=== PATIENT | female | born 2000 | race Caucasian/White ===

== ENCOUNTER 2021-09-02 08:15 | Outpatient (CLI) | payer OTHER ==
[~2021-09-02] VITALS: Ht 160 cm; Wt 43.4 kg
[2021-09-02 08:45] VITALS: BP 103/54; PULSE 60; TEMP 97.4
[2021-09-02 10:50] VITALS: BP 110/71; PULSE 60; TEMP 98
--- NOTE | 2021-09-02 11:06 | NUR ---
Discharge instructions reveiwed with the patient, intstructed to follow up as scheduled with cardiology, instructed to contact physician office with any other questions or concerns, IV removed, VSS, ambulatory and leaving with her spouse
== END 2021-09-02 11:08 | disposition home or self-care (01) ==
LOC: COL.CAR 08:15
DX: R55 Syncope and collapse (principal)

== ENCOUNTER 2022-06-01 21:16 | Emergency (ER) | payer OTHER ==
[~2022-06-01] VITALS: Ht 162.6 cm; Wt 45.5 kg
[2022-06-01 21:22] VITALS: BP 104/57; TEMP 98
[2022-06-01 22:29] LABS: COLLECTION METHOD CLEAN CATCH
[2022-06-01 22:36] LABS: PH 6.5 (5.0-8.5); URINE APPEARANCE Cloudy (CLEAR/HAZY); URINE BACTERIA Rare /hpf (NONE SEEN); URINE BLOOD 2+ (NEGATIVE); URINE COLOR Yellow (YELLOW); URINE GLUCOSE Negative (NEGATIVE); URINE KETONE Negative (NEGATIVE); URINE NITRATE Negative (NEGATIVE); URINE PROTEIN(semi-quant) Negative (NEGATIVE); URINE RBC 0-2 /hpf (0-2); URINE UROBILINOGEN 0.2 E.U/dL (0.2-1.0)
[2022-06-01] MEDS ORDERED: CEPHALEXIN500 M1 PO (22:46)
[2022-06-01 23:04] VITALS: PULSE 92
== END 2022-06-01 23:04 | disposition home or self-care (01) ==
LOC: COL.ER
PROVIDERS: Emergency Medicine
DX: O23.42 Unspecified infection of urinary tract in pregnancy, second trimester (principal); N39.0 Urinary tract infection, site not specified; Z3A.20 20 weeks gestation of pregnancy; Z87.448 Personal history of other diseases of urinary system

== ENCOUNTER 2022-09-17 01:15 | Inpatient (IN) | payer OTHER ==
[~2022-09-17] VITALS: Ht 162.6 cm; Wt 63.6 kg
[2022-09-17] VITALS (55 sets, daily range): BP systolic 104–172; BP diastolic 53–106; PULSE 16–102; TEMP 97.8–98.6
[~2022-09-17 01:15] MED LIST: CEPHALEXIN500 M1 PO; PHENERGAN 25 TA25 MG PO; PRENATAL TABLET PO
--- NOTE | 2022-09-17 01:25 | NUR ---
0125 [id number] 36 WEEKS TO LR6 WITH C/O NECK AND SHOULDER PAIN STARTING EARLY THIS AM AND HEADACHE ALL DAY. IS PRONE TO MIGRAINES. ALSO C/O STABBING PAIN IN UPPER ABD THAT COMES AND GOES. ALSO STATES IS SWOLLEN FOR HER IN HER HANDS AND FEET. SERIAL B/P'S. 157/106,153/104,163/99. ADM ASSESSMENT COMPLETED. IS SCHEDULED FOR PRIMARY C/SECT PER PTS DESIRE FOR NO VAG DELIVERY.
[2022-09-17] MEDS ORDERED: PRILOSEC 20MG20 MG PO (01:34)
[2022-09-17] MEDS ORDERED: MACROBID 1100 MG/CAP PO (01:35)
--- NOTE | 2022-09-17 02:00 | NUR ---
0200 DR ROLES NOTIFIED AND ORDERS RECEIVED.
--- NOTE | 2022-09-17 02:30 | NUR ---
0230 IV FLUIDS STARTED AND LAB OBTAINED. IV LABETOL 20 MG IVP GIVEN. UP TO BR AND UA OBTAINED. ROLES HERE ON UNIT
[2022-09-17 02:36] LABS: BASO % 0.4 % (0.0-2.0); EOS # 0.1 K/mm3 (0.0-0.7); EOS % 0.7 % (0.0-4.0); GRAN # 7.3 K/mm3 (1.4-6.5); GRAN % 67.8 % (42.2-75.2); HEMATOCRIT 30.5 % (37.0-47.0); HEMOGLOBIN 10.4 g/dl (12.5-16.0); LYMPH # 2.3 K/mm3 (1.2-3.4); LYMPH % 20.8 % (20.0-51.0); MEAN CELL VOLUME 89 fl (80.0-100.0); MEAN CORPUSCULAR HEMOGLOBIN 30 pg (27-31); MEAN CORPUSCULAR HGB CONC 34 g/dl (33.0-37.0); MEAN PLATELET VOLUME 13.4 fl (7.4-10.4); MONO # 1.1 K/mm3 (0.1-0.6); MONO % 9.7 % (1.7-9.3); PLATELET COUNT 127 K/mm3 (130-400); RED BLOOD COUNT 3.44 M/mm3 (4.10-5.30); REDCELL DISTRIBUTION WIDTH-CV 12.4 % (11.5-14.5)
[2022-09-17 02:43] LABS: COLLECTION METHOD CLEAN CATCH
[2022-09-17 02:47] LABS: SQUAMOUS EPITHELIAL 0-2 /hpf (0-10); URINE APPEARANCE Clear (CLEAR/HAZY); URINE BACTERIA Rare /hpf (NONE SEEN); URINE BLOOD Negative (NEGATIVE); URINE COLOR Yellow (YELLOW); URINE GLUCOSE Negative (NEGATIVE); URINE KETONE Negative (NEGATIVE); URINE NITRATE Negative (NEGATIVE); URINE PROTEIN(semi-quant) 1+ (NEGATIVE); URINE RBC 0-2 /hpf (0-2); URINE UROBILINOGEN 0.2 E.U/dL (0.2-1.0); URINE WBC 0-2 /hpf (0-2)
[2022-09-17 02:52] LABS: ALBUMIN 2.7 gm/dL (3.5-5.0); BILIRUBIN,TOTAL 0.2 mg/dL (0.2-1.2); CREATININE, serum 0.63 mg/dL (0.57-1.11); POTASSIUM 3.9 mmol/L (3.5-4.5); TOTAL PROTEIN 6.2 gm/dL (6.2-8.1)
--- NOTE | 2022-09-17 03:00 | NUR ---
[address] LEW AND NEW ORDERS OBTAINED. DR LEW IN TO VISIT WITH PT. ADMIT IN PATIENT 0305 MGSO4 LOADING DOSE STARTED. 0315 C/SECT CALLED. 0320 HERRING CATH INSERTED. PERMITS SIGNED. 0330 MGSO4 INFUSING PER IV PUMP AT 2 GMS PER HOUR. FAMILY PRESERVATION CASEWORKER IN TO VISIT
--- NOTE | 2022-09-17 04:30 | NUR ---
0430 EFM OFF. TO W/C AND TO OR FOR C/SECT. IV PUMP WITH MGSO4 WITH PT.
--- NOTE | 2022-09-17 17:00 | NUR ---
1620- THIS RN AT BEDSIDE TO ASSESS PATIENT PER MAGNESIUM PROTOCOL. PATIENT STATS HER PAIN IS A 10/10, SHE IS VISIBLY SHAKING AND WOULD LIKE TO HAVE SOMETHING FOR PAIN AND HAVE A HEATING PAD. THIS RN PROVIDES A K PAD TO PATIENT AND IT IS POSITIONED UNDER HER BACK. 1650- MORPHINE ORDERED AND ADMINISTERED PER PHYSICIAN, SEE PHYSICIAN NOTIFICATION. PATIENT DOES NOT FEEL ANY PAIN RELIEF AT THIS TIME. THIS RN REMAINS AT BEDSIDE TO MONITOR PATIENT CLOSELY AND ATTEMPT TO REPOSITION. PATIENT CANNOT TOLERATE REPOSITIONING AT THIS TIME. PATIENT INCRESINGLY UNCOMFORTABLE
--- NOTE | 2022-09-17 17:18 | NUR ---
1718- PHYSICIAN NOTIFIED OF CONTINUED AND INCREASED PAIN. PHYSICIAN ORDERS 4MG MORPHINE IV ONCE, WHICH IS THE SECOND DOSE OF THIS MEDICATION. THIS RN COMMUNICATES BEING UNCOMFORTABLE WITH ORDER AND PATIENT STATUS DUE TO PATIENT BECOMING MORE UNCOMFORTABLE AFTER LAST MORPHINE DOSE AND PAIN RADIATING TO PELVIS AND DOWN THIGHS. PHYSICIAN STATES THAT INTERNAL BLEEDING WOULD BE EVIDENT WITH LOW BLOOD PRESSURE AND HIGH HEART RATE, WHICH THE PATIENT DOES NOT HAVE. PHYSICIAN ADAMENT TO GIVE SECOND DOSE OF MORPHINE. 1738- PATIENT GIVEN MORPHINE SEE EMAR. 1750- PATIENT REPORTS HER PAIN IS LESS "7 OUT OF 10." PATIENT STILL COMPLAINING OF BEING UNCOMFORTABLE AND PAIN IS ON AND AROUND THE INCISION. THIS RN REMAIN AT BEDSIDE TO EVALUATE PAIN FOR THE NEXT SEVERAL MINUTES. 1815- PHYSICIAN AT NURSES STATION AND NOTIFIED OF DECREASE IN PATIENTS PAIN.
[2022-09-17 19:12] LABS: BASO % 0.2 % (0.0-2.0); GRAN # 15.4 K/mm3 (1.4-6.5); GRAN % 84.2 % (42.2-75.2); HEMATOCRIT 28.6 % (37.0-47.0); HEMOGLOBIN 9.8 g/dl (12.5-16.0); LYMPH # 1.4 K/mm3 (1.2-3.4); LYMPH % 7.8 % (20.0-51.0); MEAN CELL VOLUME 88 fl (80.0-100.0); MEAN CORPUSCULAR HEMOGLOBIN 30 pg (27-31); MEAN CORPUSCULAR HGB CONC 34 g/dl (33.0-37.0); MEAN PLATELET VOLUME 13.3 fl (7.4-10.4); MONO # 1.3 K/mm3 (0.1-0.6); MONO % 7.2 % (1.7-9.3); PLATELET COUNT 147 K/mm3 (130-400); RED BLOOD COUNT 3.25 M/mm3 (4.10-5.30); REDCELL DISTRIBUTION WIDTH-CV 12.4 % (11.5-14.5)
[2022-09-17 19:28] LABS: ALBUMIN 2.4 gm/dL (3.5-5.0); BILIRUBIN,TOTAL 0.3 mg/dL (0.2-1.2); CALCIUM 7.2 mg/dL (8.4-10.2); CREATININE, serum 0.61 mg/dL (0.57-1.11); POTASSIUM 4.5 mmol/L (3.5-4.5); TOTAL PROTEIN 5.7 gm/dL (6.2-8.1)
[2022-09-18] VITALS (19 sets, daily range): BP systolic 104–133; BP diastolic 57–84; PULSE 81–933; TEMP 97.8–99
[2022-09-18 07:14] LABS: BASO % 0.3 % (0.0-2.0); EOS % 0.3 % (0.0-4.0); GRAN # 7.7 K/mm3 (1.4-6.5); GRAN % 75.5 % (42.2-75.2); LYMPH # 1.6 K/mm3 (1.2-3.4); MEAN CELL VOLUME 88 fl (80.0-100.0); MEAN CORPUSCULAR HGB CONC 35 g/dl (33.0-37.0); MEAN PLATELET VOLUME 11.2 fl (7.4-10.4); MONO # 0.7 K/mm3 (0.1-0.6); MONO % 7.2 % (1.7-9.3); RED BLOOD COUNT 2.24 M/mm3 (4.10-5.30); REDCELL DISTRIBUTION WIDTH-CV 13.2 % (11.5-14.5)
--- NOTE | 2022-09-18 07:20 | NUR ---
PATIENT RESTING IN BED AT THIS TIME. PATIENT GIVEN SCHEDULED TYLENOL AND PRN OXYCODONE, SEE EMAR. ASSESSMENT COMPLETED AT THIS TIME. PATIENT REPORTS PERIPAD HAS NOT BEEN CHANGED SINCE YESTERDAY WHEN THIS RN CHANGED IT. PATIENT ALSO REPORTS THAT SHE DID NOT REPOSITION OVERNIGHT. UPON ASSESSMENT, THE ABDOMINAL BINDER IS OVER THE MIDDLE OF THE ABDOMEN AND NOT OVER THE DRESSING/ INCISION SITE. HERRING EMPTIED, REFLEXES 2+, PERIPAD CHANGED, AND SCDs REPOSITIONED AT THIS TIME.
[2022-09-18 07:24] LABS: HEMATOCRIT 19.7 % (37.0-47.0); MEAN CORPUSCULAR HEMOGLOBIN 30 pg (27-31); PLATELET COUNT 35 K/mm3 (130-400)
[2022-09-18 07:25] LABS: HEMOGLOBIN 6.8 g/dl (12.5-16.0)
[2022-09-18 07:30] LABS: CALCIUM 6.6 mg/dL (8.4-10.2); CREATININE, serum 0.63 mg/dL (0.57-1.11); TOTAL PROTEIN 4.4 gm/dL (6.2-8.1)
--- NOTE | 2022-09-18 07:40 | NUR ---
MAGNESIUM ADMINISTRATION STOPPED AT THIS TIME, PER VERBAL ORDER BY , SEE PHYSICISN NOTIFICATION.
--- NOTE | 2022-09-18 09:50 | NUR ---
THIS RN IN PATIENTS ROOM WHILE ROUNDS. PATIENT EDUCATED ON PLAN OF CARE, INFOMRS PATIENT SHE SHOULD BE TURNING A CORNER AND WE WILL TRY TO GET HER OUT OF BED TODAY, REPEAT LABS DISCUSSED, PATIENT VERBALIZES UNDERSTANDING. PATIENT RESTING IN BED AND REQUESTS MORE TIME TO REST BEFORE GETTING UP.
--- NOTE | 2022-09-18 11:25 | NUR ---
THIS RN AT BEDSIDE TO ENCORAGE PATIENT TO SIT UP MORE SO SHE CAN ADJUST AND GET OUT OF BED. PATIENT CURRENTLY SITTING WITH HEAD OF BED ELEVATED 30 DEGREES. PATIENT STATES "I JUST WANT TO SLEEP" WHEN ASKED ABOUT MOVING TOWARD GETTING OUT OF BED. THIS RN ADKNOWLEDGES AND WILL RETURN AT A LATER TIME TO REASSESS WILLINGNESS TO WORK TOWARD AMBULATING.
--- NOTE | 2022-09-18 12:15 | NUR ---
PATIENT IS READY TO ATTEMPT TO AMBULATE. PATIENT SAT IN HIGH FOWLERS IN BED, THEN ASSISTED TO DANGLE, PATIENT DENIES FEELING LIGHTHEADED OR DIZZY, PATIENT ASSISTED TO STAND AND AMBULATES WITH THIS RN ON STANDBY TO THE RESTROOM. PATIENT SITS ON TOILET AND STILL DENIES SYMPTOMS. PERICARE PROVIDED AT THIS TIME AND PATIENT IS ASSISTED TO DANGLE AT THE SIDE OF THE BED. PATIENT DESIRES TO STAY SITTING ON SIDE OF THE BED AND REQUESTS HER SPOUSE BE WOKEN UP. 1225- PATIENT CALLS OUT TO NURSES STATION REPORTING SHE FEELS LIGHTHEADED. THIS RN AT BEDSIDE TO ASSIST PATIENT BACK INTO BED. PATIENT INFORMED THIS RN WILL LET HER REST FOR AN HOUR AND THEN WILL TRY TO AMBULATE PATIENT AGAIN. 1240- THIS RN AT BEDSIDE TO CHECK ON PATIENT, PATIENT REPORTS FEELING BETTER LAYING IN BED. THIS RN REITERATES THAT SHE WILL HAVE TO MOVE AROUND MORE TO DISCONTINUE THE HERRING AND REMOVE INT.
--- NOTE | 2022-09-18 13:40 | NUR ---
1320- THIS RN IN PATIENTS ROOM TO AMBULATE AND DISCONTINUE HERRING. PATIENT IF ASSISTED TO THE SIDE OF THE BED. PATIENT DENIES ANY FEELINGS OF DIZZINESS. PATIENT AMBULATES WITH LITTLE ASSISTANCE. PATIENT SITS ON TOILET AND HERRING IS DISCONTINUED. PATIENT AMBULATES INDEPENDENTLY BACK INTO ROOM AND WAKE SPOUSE. PATIENT SITS BACK IN BED TO GO TO ROOM. 1340- PATIENT TO ROOM 220 VIA BED AT THIS TIME. PATIENT IS REQUESTING PAIN MEDICATION BECAUSE HER PAIN HAS INCREASED SINCE AMBULATION.
[2022-09-18 17:25] LABS: MEAN CELL VOLUME 86 fl (80.0-100.0); MEAN CORPUSCULAR HGB CONC 35 g/dl (33.0-37.0); MEAN PLATELET VOLUME 10.8 fl (7.4-10.4); PLATELET COUNT 53 K/mm3 (130-400); RED BLOOD COUNT 2.58 M/mm3 (4.10-5.30); REDCELL DISTRIBUTION WIDTH-CV 13.5 % (11.5-14.5)
[2022-09-18 17:27] LABS: HEMATOCRIT 22.3 % (37.0-47.0); HEMOGLOBIN 7.8 g/dl (12.5-16.0); MEAN CORPUSCULAR HEMOGLOBIN 30 pg (27-31)
[2022-09-18 17:38] LABS: ALBUMIN 2.3 gm/dL (3.5-5.0); BILIRUBIN,TOTAL 1.1 mg/dL (0.2-1.2); CALCIUM 7.8 mg/dL (8.4-10.2); CREATININE, serum 0.66 mg/dL (0.57-1.11); POTASSIUM 4.9 mmol/L (3.5-4.5); TOTAL PROTEIN 5.4 gm/dL (6.2-8.1)
--- NOTE | 2022-09-18 18:15 | NUR ---
This nurse received report from Dinorah Manzo RN. Pt is no longer on Mag, has one more void left, has an INT to the RW, marcus OMALLEY, abd binder on, needs encouragement to pump, would like to shower, and still has educational videos left to watch. This nurse assumes care from Cecy Manzo RN.
[2022-09-18 18:21] LABS: BAND 17 % (0-10); LYMPHOCYTE 15 % (20.0-51.0); NEUTROPHILS 67 % (42.0-75.2); PLATELET ESTIMATE DECREASED (NORMAL)
[2022-09-18 18:23] LABS: ANISOCYTOSIS 1+; HYPOCHROMIA 1+
--- NOTE | 2022-09-18 18:55 | NUR ---
Pt asleep during this nurse hourly rounding and introductions. POC updated with pt. Pt roused awake for VS, assessment, and POC discussion. Questions, concerns, and needs encouraged. Pt verbalized understanding and agreement of POC with "no" questions, concerns, and needs.
--- NOTE | 2022-09-18 19:25 | NUR ---
Pt asleep, roused for medication administration. Pt denies questions, cocnerns, and needs.
[2022-09-19] VITALS (11 sets, daily range): BP systolic 120–138; BP diastolic 61–90; PULSE 75–94; TEMP 98–99.1
[2022-09-19 10:26] LABS: MEAN CELL VOLUME 87 fl (80.0-100.0); MEAN CORPUSCULAR HGB CONC 35 g/dl (33.0-37.0); MEAN PLATELET VOLUME 12.7 fl (7.4-10.4); PLATELET COUNT 57 K/mm3 (130-400); RED BLOOD COUNT 2.19 M/mm3 (4.10-5.30); REDCELL DISTRIBUTION WIDTH-CV 13.7 % (11.5-14.5)
[2022-09-19 10:41] LABS: ALBUMIN 2.2 gm/dL (3.5-5.0); BILIRUBIN,TOTAL 1.1 mg/dL (0.2-1.2); CREATININE, serum 0.59 mg/dL (0.57-1.11); HEMATOCRIT 19.1 % (37.0-47.0); MEAN CORPUSCULAR HEMOGLOBIN 31 pg (27-31); POTASSIUM 3.9 mmol/L (3.5-4.5); TOTAL PROTEIN 4.8 gm/dL (6.2-8.1)
[2022-09-19 10:43] LABS: HEMOGLOBIN 6.7 g/dl (12.5-16.0)
--- NOTE | 2022-09-19 10:56 | NUR ---
THIS NURSE CALLED DR. JOHNSON WITH LAB RESULTS. DR. JOHNSON ENCOURAGED AMBULATING AND IF PATIENT IS FEELING WEAK THEN ORDERED BLOOD TRANSFUSION STARTING WITH ONE UNIT. CONTINUE TO MONITOR PLATELETS AND ENCOURAGE AMBULATING TODAY. CONTINUE TYLENOL AST AND ALT ARE TRENDING DOWN.
--- NOTE | 2022-09-19 14:00 | NUR ---
THIS NURSE ASKS IF PATIENT HAS BEEN PUMPING FOR INFANT TRANSFERED TO NICU. MOTHER REPORTS SHE DID EARLIER BUT DIDN'T GET ANYTHING THEN SHE THREW UP. ENCOURAGED MOTHER TO KEEP TRYING EVERY 3 HOURS.
[2022-09-19 16:04] LABS: COLLECTION METHOD CLEAN CATCH
[2022-09-19 16:22] LABS: URINE APPEARANCE Clear (CLEAR/HAZY); URINE BLOOD 3+ (NEGATIVE); URINE COLOR Yellow (YELLOW); URINE GLUCOSE Negative (NEGATIVE); URINE KETONE Negative (NEGATIVE); URINE NITRATE Negative (NEGATIVE); URINE PROTEIN(semi-quant) Negative (NEGATIVE); URINE UROBILINOGEN 0.2 E.U/dL (0.2-1.0)
[2022-09-19 16:26] LABS: SQUAMOUS EPITHELIAL 0-2 /hpf (0-10); URINE BACTERIA Rare /hpf (NONE SEEN); URINE RBC 0-2 /hpf (0-2)
[2022-09-19 17:28] LABS: HEMOGLOBIN 8.9 g/dl (12.5-16.0)
--- NOTE | 2022-09-19 17:34 | NUR ---
DELTA CHECK OF HGB FROM 6.7 TO 8.9. ON UNIT AND NOTIFIED. NO NEW ORDERS.
--- NOTE | 2022-09-19 18:02 | NUR ---
THIS NURSE ASSESSED PATIENTS INCISION. RED AND WARM TO THE TOUCH. LARGE BRUISES NOTED AROUND INCISION. THIS NURSE ASKED DR. JOHNSON TO ASSESS PATIENTS INCISION FOR INFECTION. DR. JOHNSON STATED HE WOULD CHECK PATIENTS INCISION TODAY.
[2022-09-20 01:10] VITALS: BP 126/79; PULSE 94; TEMP 98.3
[2022-09-20 05:30] VITALS: BP 130/87; PULSE 89; TEMP 97.8
[2022-09-20 05:42] LABS: MEAN CELL VOLUME 88 fl (80.0-100.0); MEAN CORPUSCULAR HGB CONC 34 g/dl (33.0-37.0); MEAN PLATELET VOLUME 11.6 fl (7.4-10.4); PLATELET COUNT 104 K/mm3 (130-400); RED BLOOD COUNT 2.81 M/mm3 (4.10-5.30); REDCELL DISTRIBUTION WIDTH-CV 14.2 % (11.5-14.5)
[2022-09-20 05:46] LABS: HEMATOCRIT 24.8 % (37.0-47.0); HEMOGLOBIN 8.5 g/dl (12.5-16.0); MEAN CORPUSCULAR HEMOGLOBIN 30 pg (27-31)
[2022-09-20 06:01] LABS: ALBUMIN 2.4 gm/dL (3.5-5.0); BILIRUBIN,TOTAL 1.2 mg/dL (0.2-1.2); CALCIUM 8.7 mg/dL (8.4-10.2); CREATININE, serum 0.59 mg/dL (0.57-1.11); TOTAL PROTEIN 5.6 gm/dL (6.2-8.1)
[2022-09-20 06:14] LABS: BAND 5 % (0-10); EOSINOPHIL 2 % (0-4); LYMPHOCYTE 19 % (20.0-51.0); NEUTROPHILS 72 % (42.0-75.2); PLATELET ESTIMATE DECREASED (NORMAL)
--- NOTE | 2022-09-20 07:35 | NUR ---
NOTED ON ASSESSMENT INCISION SITE DOWN TO LABIA BRUISED AND WARM TO THE TOUCH. LABIA SWOLLEN AND PAINFUL. PATIENT UTILIZING COLD PACKS. PATIENT REQUESTING PHENERGAN DUE TO PO ZOFRAN "MAKING ME SICK".
[2022-09-20] MEDS ORDERED: PROCARDIA XL 3030 MG PO (08:50)
[2022-09-20] MEDS ORDERED: TYLENOL 500MG500 MG PO (08:55)
[2022-09-20] MEDS ORDERED: ROXICODONE 55 MG/TAB PO (08:55)
[2022-09-20 09:25] VITALS: BP 130/78; PULSE 87; TEMP 97.9
[2022-09-20 16:10] VITALS: BP 129/88; PULSE 93; TEMP 98.1
[2022-09-20 20:30] VITALS: BP 134/88; PULSE 97; TEMP 98.7
[2022-09-21 05:15] VITALS: BP 119/71; PULSE 92; TEMP 98
[2022-09-21 07:32] VITALS: BP 130/67; PULSE 72; TEMP 97.7
== END 2022-09-21 15:50 | disposition home or self-care (01) | DRG 787 ==
LOC: LDRO 01:15 → LDR 01:38 → LDRO 03:07 → LDR 03:08 → OB 03:08
PROVIDERS: Obstetrics & Gynecology; ADMIT Obstetrics & Gynecology
PROC: 10D00Z1 Extraction of Products of Conception, Low, Open Approach (ICD-10-PCS; principal; 2022-09-17)
PROC: 30233N1 Transfusion of Nonautologous Red Blood Cells into Peripheral Vein, Percutaneous Approach (ICD-10-PCS; 2022-09-19)
DX: O14.24 HELLP syndrome, complicating childbirth (principal); D58.9 Hereditary hemolytic anemia, unspecified; O16.4 Unspecified maternal hypertension, complicating childbirth; O36.5930 Maternal care for other known or suspected poor fetal growth, third trimester, not applicable or unspecified; O99.344 Other mental disorders complicating childbirth; F41.9 Anxiety disorder, unspecified; F32.A Depression, unspecified; K21.9 Gastro-esophageal reflux disease without esophagitis; O99.62 Diseases of the digestive system complicating childbirth; O90.81 Anemia of the puerperium; O72.3 Postpartum coagulation defects; D69.6 Thrombocytopenia, unspecified; F43.10 Post-traumatic stress disorder, unspecified; Z3A.36 36 weeks gestation of pregnancy; Z37.0 Single live birth; Z88.6 Allergy status to analgesic agent; Z88.8 Allergy status to other drugs, medicaments and biological substances; Z23 Encounter for immunization
CPT/HCPCS: J0171; J0690; J1100; J1885; J2270; J2370; J2405; J2550; J2590; J3010; J3475; J7120; P9016